=== PATIENT | female | born 2005 | race Caucasian/White ===

== ENCOUNTER 2025-10-25 06:47 | Emergency (ER) | payer BC, MEDICAID ==
[~2025-10-25] VITALS: Ht 157.5 cm; Wt 65.6 kg
[2025-10-25 06:49] VITALS: TEMP 98.7
[2025-10-25 07:19] LABS: URINE HCG NEGATIVE (NEG)
[2025-10-25 07:21] LABS: LEUKOCYTE ESTERASE ,URINE TRACE (Neg); NITRITES, URINE NEGATIVE (Neg); OCCULT BLOOD,URINE MODERATE (Neg)
--- NOTE | 2025-10-25 07:31 | Physician Documentation ---
History of Present Illness ~ Chief Complaint: Back Pain Stated Complaint: BACK PAIN Time Seen by MD: 07:29 OK to notify your PCP?: Yes Source: patient, RN/MD, RN notes reviewed, old records Mode of Arrival: POV Exam Limitations: no limitations, other HPI This is a 20 years old female with history of UTIs came to the ED with chief complaint of pain in the lower back region and lower abdomen. She states that she has shooting pain in the lower back region, that radiates to lower abdomen for which she took Tylenol, that helped mild relief from pain. She also compla ins of pain during urination and denies urgency and frequency. Patient has nasal congestion, watering of eyes, headaches associated mild fever on yesterday. pt denies chills, vomiting, diaarhea, constipation, chest pain, abd pain, dizziness, syncope. Medication Reconciliation Allergies: Coded Allergies: No Known Allergies (Unverified , 10/25/25) Scheduled Phenazopyridine HCl (Pyridium), 1 TAB PO Q8H Sulfamethoxazole/Trimethoprim (Bactrim Ds Tablet), 1 TAB PO Q12H Past Medical History Past Medical History: UTI Past Surgical History: no surgical history Smoking Status: Never smoker Alcohol Use: None Drug Use: none Lives with: Family Lives In: Home Review of Systems All Other Systems at this time: Reviewed and Negative ROS Back pain as well as other positive symptoms noted above in the HPI, otherwise all other systems are reviewed and negative. Physical Exam Physical Exam Vital Signs: RN Vital Signs have been reviewed: Yes, Temperature: 98.7, Source: Oral, Heart Rate: 87, Respiratory Rate: 18, BP: 111/71, Pulse Oximetry: 100, Norris ght: 65.600 Oxygen Flow Rate: 0 Physical Exam General: The patient is well developed, well nourished, nontoxic appearing and is in no acute distress. Skin: [place], warm and dry with no rashes. HEENT: Head was normocephalic and atraumatic. Eyes - pupils equal, round, reactive to light and accommodation. Extraocular movements were intact. Conjunctivae were nonicteric. The mouth and oropharynx were clear with moist mucous membranes. There were no pharyngeal exudates or erythema. Neck: Supple and nontender. There was no jugular venous distention, lymphadenopathy, thyromegaly or masses. Chest: Clear to auscultation bilaterally without wheezes, rales or rhonchi. No accessory muscle use. No dullness to percussion. Heart: Rate regular and rhythmic. S1, S2. No murmurs. Palpation of the chest wall was normal. No rubs or thrills. Abdomen: Soft, nontender and nondistended. Positive bowel sounds. No guarding or rebound. Extremities: No cyanosis, clubbing or edema. The patient moves all extremities. Pulses were equal and symmetric. Neurologic: Motor sensory grossly intact Psychologic: The patient was oriented to person, place and time. The patient demonstrated appropriate judgement and insight. Progress Results/Orders Reviewed/noted all lab results: Yes Results/Orders Orders - JACK DEWITT MD Cult Urine + [address] (10/25/25 07:35) Completed Orders - JACK DEWITT MD Hcg, Ur Ql (10/25/25 06:57) Cbc/Diff (10/25/25 06:57) Lipase (10/25/25 06:57) CMP (10/25/25 06:57) Ua W/Microscopic, Cult If Ind (10/25/25 06:55) Medications Received in ER Medications (Trade) Dose Ordered Sig/Nazia Route PRN Reason Start Time Stop Time Status Last Admin Dose Admin (0.9% sodium chloride (NS) 1000ml IV soln) 1,000 ml ONCE ONCE IVB 10/25/25 08:35 10/25/25 08:39 DC 10/25/25 09:07 1,000 ML (Pyridium tablet) 100 mg ONCE ONCE PO 10/25/25 08:35 10/25/25 08:39 DC 10/25/25 09:07 100 MG Ceftriaxone Sodium 50 ml @ 100 mls/hr ONCE ONCE IV 10/25/25 08:35 10/25/25 09:04 DC 10/25/25 09:07 100 MLS/HR Vital Signs 10/25/25 10/25/25 10/25/25 10/25/25 06:49 08:45 08:45 10:10 Temp 98.7 Pulse 87 67 73 Resp 18 16 16 16 B/P (MAP) 111/71 113/63 (80) 107/68 (81) Pulse Ox 100 99 100 O2 Flow Rate 0 0 0 Laboratory Tests Test 10/25/25 06:55 10/25/25 07:21 10/25/25 09:10 10/25/25 09:11 Urine Specimen Description Cln catch midstream Urine Color Yellow Urine Clarity Slightly cloudy Urine pH 8.5 Urine Specific [place] 1.020 Urine Protein Trace Urine Glucose (UA) Negative Urine Ketones Negative Urine Occult Blood Moderate H Urine Nitrite Negative Urine Bilirubin Negative Urine Urobilinogen 0.2 Urine Leukocyte Esterase Trace H Urine RBC 20-50 Urine WBC 50-100 H Urine WBC Clumps Few Urine Squamous Epithelial Cells Moderate Urine Bacteria 3+ Urine Culture Indicated Indicated Volume Urine Centrifuged 10 ml Urine HCG, Qualitative Negative Urine Comment White Blood Count 11.9 H Red Blood Count 4.33 Hemoglobin 12.5 Hematocrit 37.0 Mean Corpuscular Volume 85.5 Mean Corpuscular Hemoglobin 28.9 Mean Corpuscular Hemoglobin Concent 33.8 Red Cell Distribution Width 13.5 Platelet Count 331 Mean Platelet Volume 8.4 Neutrophils (%) (Auto) 78.8 H Lymphocytes (%) (Auto) 13.0 L Monocytes (%) (Auto) 3.2 Eosinophils (%) (Auto) 4.4 Basophils (%) (Auto) 0.6 Neutrophils # (Auto) 9.3 H Lymphocytes # (Auto) 1.5 Monocytes # (Auto) 0.4 Eosinophils # (Auto) 0.5 Basophils # (Auto) 0.1 CBC Comment Sodium Level 141 Potassium Level 4.0 Chloride Level 108 H Carbon Dioxide Level 23.2 L Anion Gap 10 Blood Urea Nitrogen 12 Creatinine 0.55 Estimated GFR/1.73 m2 > 90 BUN/Creatinine Ratio 21.8 H Glucose Level 102 Calcium Level 8.9 Total Bilirubin 0.4 Aspartate Amino Transf (AST/SGOT) 18 Alanine Aminotransferase (ALT/SGPT) 18 Alkaline Phosphatase 67 Total Protein 7.5 Albumin 4.0 Globulin 3.5 Albumin/Globulin Ratio 1.1 Lipase 31 Chemistry Comments Influenza Type A Antigen Negative Influenza Type B Antigen Negative SARS-CoV-2 Antigen (Rapid) Negative Microbiology Date/Time Source Procedure Growth Status 10/25/25 07:35 Urine Clean Catch Midstream Urine Culture - Preliminary Culture received. Resulted Medical Decision Making Additional information obtaine: N/A Findings This is a 20 years old female with history of UTIs came to the ED with chief complaint of pain in the lower back region and lower abdomen. She states that she has shooting pain in the lower back region, that radiates to lower abdomen for which she took Tylenol, that helped mild relief from pain. She also complains of pain during urination and denies urgency and frequency. Patient has nasal congestion, watering of eyes, headaches associated mild fever on yesterday. UA is positive for urinary tract infection with mild elevation of white count. Influenza A and B, COVID test are negative . Vitals are stable, BNP is normal. Patient received 1 L of IV normal saline bolus, IV Rocephin 1 g and Pyridium medication for the dysuria. Patient is stable and ordered oral Keflex 250 mg twice daily for 7 days , Pyridium for dysuria and pt was stable and discharged to home. Differential Dx:Considerations: Pyelonephritis, Urinary tract infection Differential Diagnosis Renal stones, influzena, Covid, pneumonia, sinusitis. Departure Disposition: HOME / SELF CARE / HOMELESS Impression: Primary Impression: UTI (urinary tract infection) Qualified Codes: N30.01 - Acute cystitis with hematuria Condition: Stable Additional Instructions: Take Medications as prescribed Referrals: NO PRIMARY CARE PROVIDER (PCP) Prescriptions Phenazopyridine HCl (Pyridium) 100 Mg Tablet 1 TAB PO Q8H for urinary discomfort for 2 Days, #6 TAB 0 Refills Prov: JACK DEWITT MD 10/25/25 Sulfamethoxazole/Trimethoprim (Bactrim Ds Tablet) 800 Mg-160 Mg Tablet 1 TAB PO Q12H for 10 Days, #20 TAB Prov: JACK DEWITT MD 10/25/25 Education Educated: Patient Educated regarding: diagnosis Additional Comment Additional Comment Patient was seen and examined. I reviewed the medical history physical exam seen in the patient with the resident agree with the management and plan. Signature Scribe Signature: Scribed for Jack Dewitt MD by Feroz Reaves . 10/25/25 07:40 Attestation: Resident attestation The above note has been reviewed and supervised by a senior resident PGY2/PGY3 Patient was seen, examined and discussed with the attending physician Rufino Allen MD Internal Medicine Resident, PGY 1 The note accurately reflects work and decisions made by me.Jack Dewitt MD 10/25/25 07:31 JACK DEWITT MD Oct 25, 2025 07:31 FEROZ LUJAN Oct 25, 2025 07:41 MANAV ALLEN, RES Oct 25, 2025 08:14
[2025-10-25 07:32] LABS: UA COLLECTION TYPE CLN CATCH MIDSTREAM
[2025-10-25 07:34] LABS: SQUAMOUS EPITHELIAL CELL,UR MODERATE /LPF (FEW)
[2025-10-25 07:35] LABS: WBC CLUMPS,URINE FEW /HPF (NEGATIVE)
[2025-10-25 07:42] LABS: MEAN PLATELET VOLUME 8.4 FL (7.4-10.4); RED CELL DISTRIBUTION WIDTH 13.5 % (11.5-14.5)
[2025-10-25 07:56] LABS: CREATININE 0.55 MG/DL (0.40-0.90); TOTAL CARBON DIOXIDE 23.2 MMOL/L (24-32); eCRCL 128 ML/MIN; eGFR > 90 ML/MIN
[2025-10-25] MEDS ORDERED: SULF1TAB49 PO (08:34)
[2025-10-25] MEDS ORDERED: PHEN-824 PO (08:34)
[2025-10-25] MEDS: normal saline 1000ML IV soln IVB ONE (09:07)
[2025-10-25] MEDS: phenazopyridine 100mg tablet PO ONE (09:07)
[2025-10-25] MEDS: CefTRIAXone/D5W-Rocephin 1gm 50 ML IV ONE (09:07)
[2025-10-25 09:55] LABS: INFLUENZA TYPE A ANTIGEN RAPID NEGATIVE (Negative); INFLUENZA TYPE B ANTIGEN RAPID NEGATIVE (Negative)
[2025-10-25 10:38] VITALS: BP 106/68; PULSE 81; RESP 16; O2SAT 97
== END 2025-10-25 10:42 | disposition home or self-care (01) ==
LOC: ER 06:49
DX: N39.0 Urinary tract infection, site not specified (principal); Z79.899 Other long term (current) drug therapy; Z87.440 Personal history of urinary (tract) infections; Z20.822 Contact with and (suspected) exposure to COVID-19
CPT/HCPCS: 36415; 80053; 81001; 81025; 83690; 85025; 87088; 87804; 87811; 96365; 99284; J0696; J7030; 87077; 87186